=== PATIENT | female | born 1980 | race African-American/Black ===

== ENCOUNTER 2023-12-13 09:40 | Emergency (ER) | payer BC ==
--- NOTE | 2023-12-13 10:11 | ED ---
General Adult HPI - General Chief complaint: Upper Respiratory Infection Stated complaint: sob,covid + Time Seen by Provider: 12/13/23 09:47 Source: patient, RN notes reviewed Mode of arrival: ambulatory Limitations: no limitations - History of Present Illness Initial comments: 43-year-old female presented to the ER with a chief complaint of a cough. Re ports for the past 3 days she has been having a headache with a worsening cough and congestion. [facility] yesterday and diagnosed with COVID. Patient was prescribed prednisone and Tessalon Perles. She states today she has been having a worsening of cough with shortness of breath. She does report low-grade fevers at home for which she has been taking [id number] ibuprofen. Reports a history of COPD and is currently smoking. She denies any chest pain, peripheral edema, abdominal pain, constipation/diarrhea, nausea or vomiting. - Related Data Previous Rx's Medication Instructions Recorded Azithromycin [Zithromax Z Pack] 0 tab PO DIRECTED #6 tab 12/13/23 Allergies Allergy/AdvReac Type Severity Reaction Status Date / Time No Known Allergies Allergy Verified 12/13/23 09:55 Review of Systems ROS Statement: Those systems with pertinent positive or pertinent negative responses have been documented in the HPI. ROS Other: All systems not noted in ROS Statement are negative. Past Medical History Additional Past Medical History / Comment(s): Spontaneous pneumothorax, COPD Additional Past Surgical History / Comment(s): chest tubes left and right Past Psychological History: No Psychological Hx Reported Smoking Status: Current every day smoker Past Alcohol Use History: Occasional Past Drug Use History: None Reported General Exam Limitations: no limitations General appearance: alert, in no apparent distress Eye exam: Present: normal appearance, PERRL, EOMI. Absent: scleral icterus, conjunctival injection, periorbital swelling ENT exam: Present: normal exam, normal oropharynx, mucous membranes moist, TM's normal bilaterally Neck exam: Present: normal inspection. Absent: tenderness, meningismus, lymphadenopathy Respiratory exam: Present: normal lung sounds bilaterally. Absent: respiratory distress, wheezes, rales, rhonchi, stridor Cardiovascular Exam: Present: regular rate, normal rhythm, normal heart sounds. Absent: systolic murmur, diastolic murmur, rubs, gallop, clicks Skin exam: Present: warm, dry, intact, normal color. Absent: rash Course Vital Signs 12/13/23 09:51 Temperature 98.2 F Pulse Rate 99 Respiratory 20 Rate Blood Pressure 142/84 O2 Sat by Pulse 99 Oximetry Medical Decision Making - Medical Decision Making Was pt. sent in by a medical professional or institution (MASHA Eugene, RECREATION ATTENDANT, urgent care, hospital, or detention...) When possible be specific @ -No Did you speak to anyone other than the patient for history (EMS, parent, family, police, friend...)? What history was obtained from this source @ -No Did you review nursing and triage notes (agree or disagree)? Why? @ -I reviewed and agree with nursing and triage notes Were old charts reviewed (outside hosp., previous admission, EMS record, old EKG, old radiological studies, urgent care reports/EKG's, detention records)? Report findings @ -No old charts were reviewed Differential Diagnosis (chest pain, altered mental status, abdominal pain women, abdominal pain men, vaginal bleeding, weakness, fever, dyspnea, syncope, headache, dizziness, GI bleed, back pain, seizure, CVA, palpatations, mental health, musculoskeletal)? @ -COVID, RSV, influenza, viral sinusitis, pneumonia this list is not meant to be all-inclusive EKG interpreted by me (3pts min.). @ -None X-rays interpreted by me (1pt min.). @ -Chest x-ray interpreted by me remarkable for small left pleural effusion with adjacent airspace opacities concerning of pneumonia. CT interpreted by me (1pt min.). @ -None done U/S interpreted by me (1pt. min.). @ -None done What testing was considered but not performed or refused? (CT, X-rays, U/S, labs)? Why? @ -None What meds were considered but not given or refused? Why? @ -None Did you discuss the management of the patient with other professionals (professionals i.e. MASHA Eugene, RECREATION ATTENDANT, lab, RT, psych nurse, psychiatric social worker, business lawyer, teacher, staff readiness officer, upper caser)? Give summary @ -No Was smoking cessation discussed for >3mins.? @ -I discussed smoking cessation for greater than 3 minutes. The risk of smoking were discussed with the patient including but not limited to risks of cancer, stroke, coronary artery disease and COPD. Also discussed with patient were multiple methods of quitting smoking. Lastly we discussed the financial cost of smoking. Was critical care preformed (if so, how long)? @ -No Were there social determinants of health that impacted care today? How? (Homelessness, low income, unemployed, alcoholism, drug addiction, transportation, low edu. Level, literacy, decrease access to med. care, detention, rehab)? @ -Yes, patient recently moved to this area and has not established with a primary care physician. Was there de-escalation of care discussed even if they declined (Discuss DNR or withdrawal of care, Hospice)? DNR status @ -No What co-morbidities impacted this encounter? (DM, HTN, Smoking, COPD, CAD, Cancer, CVA, ARF, Chemo, Hep., AIDS, mental health diagnosis, sleep apnea, morbid obesity)? @ -COPD, smoker Was patient admitted / discharged? Hospital course, mention meds given and route, prescriptions, significant lab abnormalities, going to OR and other pertinent info. @ -Discharge. 43-year-old female presenting to the ER with a chief complaint of cough and shortness of breath. Vitals upon arrival stable. Patient satting 99% on room air. Patient is also afebrile. Patient recently tested positive for COVID. Patient in no signs acute distress and nontoxic-appearing. Chest x- ray obtained to rule out complicating factor. X-ray showing a small left pleural effusion with adjacent airspace opacities concerning of pneumonia. Patient will be started on azithromycin. Upon reevaluation, patient resting company in exam room in no signs of acute distress. Results discussed with patient, all questions answered. Advise close follow-up with PCP, referrals given. Patient stable for discharge at this time. Strict return parameters discussed. Patient discharged in stable condition. Patient verbally expressed understanding and agreement care plan. Case discussed with ED attending, Dr. Rouse. Undiagnosed new problem with uncertain prognosis? @ -No Drug Therapy requiring intensive monitoring for toxicity (Heparin, Nitro, Insulin, Cardizem)? @ -No Were any procedures done? @ -No Diagnosis/symptom? @ -Pneumonia/COVID/nicotine dependence Acute, or Chronic, or Acute on Chronic? @ -Acute Uncomplicated (without systemic symptoms) or Complicated (systemic symptoms)? @ -Uncomplicated Side effects of treatment? @ -No Exacerbation, Progression, or Severe Exacerbation? @ -No Poses a threat to life or bodily function? How? (Chest pain, USA, VT, pneumonia, PE, COPD, DKA, ARF, appy, cholecystitis, CVA, Diverticulitis, Homicidal, Suicidal, threat to staff... and all critical care pts) @ -Possibly pneumonia - Radiology Data Radiology results: report reviewed, image reviewed Disposition Clinical Impression: COVID-19, Pneumonia, Nicotine dependence Disposition: HOME SELF-CARE Condition: Stable Instructions (If sedation given, give patient instructions): How to Stop Smoking (ED), Community Acquired Pneumonia (ED) Additional Instructions: Complete full course of antibiotics. Follow-up with PCP. Return to the ER for any new or worsening concerns. Prescriptions: Azithromycin [Zithromax Z Pack] 0 tab PO DIRECTED #6 tab Is patient prescribed a controlled substance at d/c from ED?: No Referrals: None,Stated [Primary Care Provider] - 1-2 days Jacskon Harden MD [STAFF PHYSICIAN] - 1-2 days Forms: Area PCPs Time of Disposition: 10:44
--- NOTE | 2023-12-13 10:30 | XR ---
EXAMINATION TYPE: XR chest 2V DATE OF EXAM: 12/13/2023 10:25 AM COMPARISON: None TECHNIQUE: XR chest 2V Frontal and lateral views of the chest. CLINICAL INDICATION:Female, 43 years old with history of SOB; FINDINGS: Lungs/Pleura: No pneumothorax. Blunting of the left costophrenic angle consistent with a small pleura l effusion. There is some surrounding airspace opacity. Pulmonary vascularity: Unremarkable. Heart/mediastinum: Cardiomediastinal silhouette is unremarkable. Musculoskeletal: No acute osseous pathology. IMPRESSION: Small left pleural effusion with adjacent airspace opacities which may represent pneumonia versus ate lectasis in the appropriate clinical setting.
[2023-12-13 11:13] VITALS: BP 139/74; PULSE 101; RESP 18; TEMP 98.3
== END 2023-12-13 11:08 | disposition home or self-care (01) ==
LOC: EC 09:40
DX: U07.1 COVID-19 (principal); J12.82 Pneumonia due to coronavirus disease 2019; J90 Pleural effusion, not elsewhere classified; J44.9 Chronic obstructive pulmonary disease, unspecified; F17.200 Nicotine dependence, unspecified, uncomplicated
CPT/HCPCS: 71046; 99284; 99406

== ENCOUNTER 2024-01-05 07:19 | Emergency (ER) | payer BC ==
--- NOTE | 2024-02-08 12:26 | XR ---
Site ID [facility] [place] ID [id number] Order # Procedure CHEST TWO VIEWS (PA/LAT) EXAMINATION TYPE: XR chest 2V DATE OF EXAM: 01/06/2024 9:15 AM CLINICAL INDICATION: Cough COMPARISON: Chest radiogr THIS EXAM WAS READ DURING PACS DOWNTIME, NO PRIORS AVAILABLE. aphs from TECHNIQUE: XR chest 2V Frontal view of the chest. FINDINGS: Lungs/Pleura: Scattered subtle reticular and hazy opacities. No evidence of pneumothorax, focal conso lidation or pleural effusion. Pulmonary vascularity: Unremarkable. Heart/mediastinum: Cardiomediastinal silhouette is unremarkable. Musculoskeletal: No acute osseous pathology. IMPRESSION: Subtle scattered opacities which may represent an atypical pneumonia.
== END 2024-01-05 11:09 | disposition home or self-care (01) ==
LOC: EC 07:19
DX: R05.9 Cough, unspecified (principal)
CPT/HCPCS: 71046; 93005; 99283